=== PATIENT | male | born 1985 | race Caucasian/White ===

== ENCOUNTER 2025-05-27 14:18 | Emergency (ER) | payer SELFPAY ==
[2025-05-27] MEDS: Acetaminophen/oxyCODONE 325-5 MG Tab PO STA (14:31)
[2025-05-27] MEDS: Ondansetron 4 MG Tab.DIS PO ONE (14:31)
== END 2025-05-27 16:00 | disposition home or self-care (01) ==
LOC: JD.ED 14:18
DX: S82.61XA Displaced fracture of lateral malleolus of right fibula, initial encounter for closed fracture (principal); X50.1XXA Overexertion from prolonged static or awkward postures, initial encounter
CPT/HCPCS: 73610; 99283; A9270